=== PATIENT | male | born 1985 | race American Indian/Alaskan Native ===

== ENCOUNTER 2020-08-25 00:53 | Emergency (ER) | payer MEDICAID, OTHER ==
--- NOTE | 2020-08-25 01:03 | EDM.PDOC ---
ED HPI GENERAL MEDICAL PROBLEM - General Chief Complaint: Behavioral/Psych Stated Complaint: [facility] Time Seen by Provider: 08/25/20 00:56 Source of Information: Reports: EMS History Limitations: Reports: Altered Mental Status - History of Present Illness INITIAL COMMENTS - FREE TEXT/NARRATIVE: This is a 35-year-old male. Apparently he was in a hotel in [place] when the ambulance was called because the patient was hallucinating and acting strange. If I understand correctly there was a [place] police dispatcher on the scene stating that he was delivering something to this patient when he found him this way. Supposedly the patient took a 1 g of methamphetamine and has been drinking alcohol tonight. On the way from [place] he was shaking and hallucinating and they gave him some Ativan to calm him down. When he arrived to the ER he would have moments of coherency and then moments of babbling. He denies any particular pain or problems when he is coherent. No further history can be obtained at this time. - Related Data Allergies Allergy/AdvReac Type Severity Reaction Status Date / Time Sulfa (Sulfonamide Allergy Cannot Verified 08/25/20 01:07 Antibiotics) Remember Home Meds: Home Meds . [Unable to Verify Home Med List] 08/25/20 [History] ED ROS GENERAL - Review of Systems Review Of Systems: See Below Reason Not Obtained: Due to his mental status unable to do a review of systems - Physical Exam Exam: See Below Exam Limited By: Altered Mental Status General Appearance: WD/WN, Other (He is awake and has moments of coherency.) Eye Exam: Bilateral Eye: Normal Inspection, Other ('s are sluggish, he does have roving eyes but he will focus) Ears: Normal External Exam Nose: Normal Inspection Throat/Mouth: Normal Lips, No Airway Compromise, Other (Will focus and seem to answer questions appropriately but then he also babbles at times.) Head Exam: Atraumatic, Normocephalic Neck: Supple Respiratory/Chest: No Respiratory Distress, Lungs Clear, Normal Breath Sounds Cardiovascular: Regular Rate, Rhythm, No Murmur GI/Abdominal: Soft, Non-Tender, Other (He denies any abdominal tenderness) Neuro Exam (Abbreviated): Other (The patient is awake but he is not oriented to place or time. He will answer to his name however.) Back Exam: Normal Inspection, Full Range of Motion Extremities: Normal Inspection, Normal Range of Motion Psychiatric: Flat Affect, Other (He seems to be hallucinating though he will not tell me what he is seeing or hearing, this seems to go along with the babbling and incoherent speech.) Skin Exam: Warm, Dry #1 Interpretation EKG Date: 08/25/20 Time: 01:10 EKG Interpretation Comments: EKG shows a normal sinus rhythm with rate of 94. I do not believe he has had an old inferior FL but there are no acute ST or T wave changes and no significant ischemia noted. Course - Vital Signs Last Recorded V/S: Last Vital Signs Temp 99.6 F 08/25/20 01:02 Pulse 92 08/25/20 01:02 Resp 17 08/25/20 01:02 BP 133/84 08/25/20 01:02 Pulse Ox 95 08/25/20 01:02 - Orders/Labs/Meds Orders: Active Orders 24 hr Category Date Time Status Blood Glucose Check, Bedside [RC] ONETIME Care 08/25/20 01:00 Active EKG Documentation Completion [RC] ASDIRECTED Care 08/25/20 01:08 Active EKG 12 Lead [EK] Stat Ther 08/25/20 01:08 Ordered Labs: Laboratory Tests 08/25/20 08/25/20 08/25/20 Range/Units 00:59 01:05 01:05 WBC 7.72 (4.23-9.07) K/mm3 RBC 5.06 (4.63-6.08) M/mm3 Hgb 13.4 L (13.7-17.5) gm/dl Hct 41.1 (40.1-51.0) % MCV 81.2 (79.0-92.2) fl MCH 26.5 (25.7-32.2) pg MCHC 32.6 (32.2-35.5) g/dl RDW Std Deviation 40.8 (35.1-43.9) fL Plt Count 230 (163-337) K/mm3 MPV 10.3 (9.4-12.3) fl Neut % (Auto) 74.7 H (34.0-67.9) % Lymph % (Auto) 13.3 L (21.8-53.1) % [place] % (Auto) 9.7 (5.3-12.2) % Eos % (Auto) 1.9 (0.8-7.0) Baso % (Auto) 0.3 (0.1-1.2) % Neut # (Auto) 5.76 H (1.78-5.38) K/mm3 Lymph # (Auto) 1.03 L (1.32-3.57) K/mm3 [place] # (Auto) 0.75 (0.30-0.82) K/mm3 Eos # (Auto) 0.15 (0.04-0.54) K/mm3 Baso # (Auto) 0.02 (0.01-0.08) K/mm3 Sodium 142 (136-145) mEq/L Potassium 3.6 (3.5-5.1) mEq/L Chloride 105 (98-107) mEq/L Carbon Dioxide 25 (21-32) mEq/L Anion Gap 15.6 H (5-15) BUN 12 (7-18) mg/dL Creatinine 1.3 (0.7-1.3) mg/dL Est Cr Clr Drug Dosing 88.71 mL/min Estimated GFR (MDRD) > 60 (>60) mL/min BUN/Creatinine Ratio 9.2 L (14-18) Glucose 99 (74-106) mg/dL POC Glucose 89 (70-105) mg/dL Calcium 9.0 (8.5-10.1) mg/dL Total Bilirubin 0.7 (0.2-1.0) mg/dL AST 34 (15-37) U/L ALT 30 (16-63) U/L Alkaline Phosphatase 58 (46-116) U/L Total Protein 7.4 (6.4-8.2) g/dl Albumin 4.1 (3.4-5.0) g/dl Globulin 3.3 gm/dL Albumin/Globulin Ratio 1.2 (1-2) Urine Color (Yellow) Urine Appearance (Clear) Urine pH (5.0-8.0) Ur Specific [place] (1.005-1.030) Urine Protein (Negative) Urine Glucose (UA) (Negative) Urine Ketones (Negative) Urine Occult Blood (Negative) Urine Nitrite (Negative) Urine Bilirubin (Negative) Urine Urobilinogen (0.2-1.0) Ur Leukocyte Esterase (Negative) Urine RBC (0-5) /hpf Urine WBC (0-5) /hpf Ur Epithelial Cells (0-5) /hpf Urine Bacteria (FEW) /hpf Urine Mucus (FEW) /hpf Urine Opiates Screen (SUAWMA=183) Ur Buprenorphine Scrn (CUTOFF=10) Ur Oxycodone Screen (RPP1AN=315) Urine Methadone Screen (ICC4BW=154) Ur Propoxyphene Screen (AZXWHE=046) Ur Barbiturates Screen (ESGNHQ=382) Ur Tricyclics Screen (KIGADR=150) Ur Phencyclidine Scrn (CUTOFF=25) Ur Amphetamine Screen (ELHLED=153) U Methamphetamines Scrn (ESOGOI=749) U Benzodiazepines Scrn (BVDRDI=555) U Cocaine Metab Screen (HBJSPD=197) U Marijuana (THC) Screen (CUTOFF=50) Ethyl Alcohol 0.00 (0.00) gm% 08/25/20 08/25/20 Range/Units 02:45 02:45 WBC (4.23-9.07) K/mm3 RBC (4.63-6.08) M/mm3 Hgb (13.7-17.5) gm/dl Hct (40.1-51.0) % MCV (79.0-92.2) fl MCH (25.7-32.2) pg MCHC (32.2-35.5) g/dl RDW Std Deviation (35.1-43.9) fL Plt Count (163-337) K/mm3 MPV (9.4-12.3) fl Neut % (Auto) (34.0-67.9) % Lymph % (Auto) (21.8-53.1) % [place] % (Auto) (5.3-12.2) % Eos % (Auto) (0.8-7.0) Baso % (Auto) (0.1-1.2) % Neut # (Auto) (1.78-5.38) K/mm3 Lymph # (Auto) (1.32-3.57) K/mm3 [place] # (Auto) (0.30-0.82) K/mm3 Eos # (Auto) (0.04-0.54) K/mm3 Baso # (Auto) (0.01-0.08) K/mm3 Sodium (136-145) mEq/L Potassium (3.5-5.1) mEq/L Chloride (98-107) mEq/L Carbon Dioxide (21-32) mEq/L Anion Gap (5-15) BUN (7-18) mg/dL Creatinine (0.7-1.3) mg/dL Est Cr Clr Drug Dosing mL/min Estimated GFR (MDRD) (>60) mL/min BUN/Creatinine Ratio (14-18) Glucose (74-106) mg/dL POC Glucose (70-105) mg/dL Calcium (8.5-10.1) mg/dL Total Bilirubin (0.2-1.0) mg/dL AST (15-37) U/L ALT (16-63) U/L Alkaline Phosphatase (46-116) U/L Total Protein (6.4-8.2) g/dl Albumin (3.4-5.0) g/dl Globulin gm/dL Albumin/Globulin Ratio (1-2) Urine Color Yellow (Yellow) Urine Appearance Clear (Clear) Urine pH 7.0 (5.0-8.0) Ur Specific [place] 1.020 (1.005-1.030) Urine Protein Trace H (Negative) Urine Glucose (UA) Negative (Negative) Urine Ketones 2+ H (Negative) Urine Occult Blood Negative (Negative) Urine Nitrite Negative (Negative) Urine Bilirubin Negative (Negative) Urine Urobilinogen 2.0 H (0.2-1.0) Ur Leukocyte Esterase Negative (Negative) Urine RBC 0-5 (0-5) /hpf Urine WBC 0-5 (0-5) /hpf Ur Epithelial Cells 0-5 (0-5) /hpf Urine Bacteria Few (FEW) /hpf Urine Mucus Few (FEW) /hpf Urine Opiates Screen Negative (TFVVVK=300) Ur Buprenorphine Scrn Negative (CUTOFF=10) Ur Oxycodone Screen Negative (SXO9DG=525) Urine Methadone Screen Negative (YGD4PI=737) Ur Propoxyphene Screen Negative (VCLDBD=108) Ur Barbiturates Screen Negative (WNJUGO=158) Ur Tricyclics Screen Negative (WLCXBI=184) Ur Phencyclidine Scrn Negative (CUTOFF=25) Ur Amphetamine Screen Presumptive positive H (PBIMPW=146) U Methamphetamines Scrn Presumptive positive H (XNDAGI=195) U Benzodiazepines Scrn Negative (ZBEVYK=583) U Cocaine Metab Screen Negative (KUKBEV=459) U Marijuana (THC) Screen Presumptive positive H (CUTOFF=50) Ethyl Alcohol (0.00) gm% Meds: Medications Discontinued Medications Generic Name Dose Route Start Last Admin Trade Name Vianey PRRahat Reason Stop Dose Admin Lactated Ringer's 1,000 mls @ 999 mls/hr 08/25/20 01:07 08/25/20 01:10 Ringers, Lactated IV 08/25/20 02:07 999 mls/hr .BOLUS ONE Administration - Re-Assessments/Exams Free Text/Narrative Re-Assessment/Exam: 08/25/20 04:36 Patient is now awake and talking fairly normally. He actually ate meal and drank some fluids. Believes he will be able to call a friend to come and get him. Departure - Departure Time of Disposition: 06:47 Disposition: Home, Self-Care 01 Condition: Fair Clinical Impression: Polysubstance abuse, Methamphetamine abuse - Discharge Information *PRESCRIPTION DRUG MONITORING PROGRAM REVIEWED*: Not Applicable *COPY OF PRESCRIPTION DRUG MONITORING REPORT IN PATIENT MADHU: Not Applicable Instructions: Methamphetamines Use Disorder Referrals: PCP,None [Primary Care Provider] - Forms: ED Department Discharge Additional Instructions: Please do not use methamphetamine, which you did last night was an overdose of methamphetamine but thankfully your body was able to handle at this time, I would encourage you to follow-up with [facility] at [phone] for counseling and they can help you with this addiction, return to the ER if n eeded Sepsis Event Note (ED) - Focused Exam Vital Signs: Vital Signs Temp Pulse Resp BP Pulse Ox 08/25/20 01:02 99.6 F 92 17 133/84 95 - My Orders Last 24 Hours: My Active Orders 08/25/20 01:00 Blood Glucose Check, Bedside [RC] ONETIME 08/25/20 01:08 EKG Documentation Completion [RC] ASDIRECTED EKG 12 Lead [EK] Stat - Assessment/Plan Last 24 Hours: My Active Orders 08/25/20 01:00 Blood Glucose Check, Bedside [RC] ONETIME 08/25/20 01:08 EKG Documentation Completion [RC] ASDIRECTED EKG 12 Lead [EK] Stat
[2020-08-25] MEDS ORDERED: Lactated Ringers 1,000 ML IV ONE (01:07)
== END 2020-08-25 07:14 | disposition home or self-care (01) ==
LOC: JD.ED 00:53
DX: F15.10 Other stimulant abuse, uncomplicated (principal); F12.10 Cannabis abuse, uncomplicated; Z88.2 Allergy status to sulfonamides
CPT/HCPCS: 36415; 80053; 80306; 80307; 81001; 82962; 85025; 93005; 99285; J7120; 93010; 99283